=== PATIENT | male | born 1970 | race Two or more races ===

== ENCOUNTER 2017-05-20 17:50 | Inpatient (IN) | payer OTHER ==
[~2017-05-20] VITALS: Ht 167.6 cm; Wt 69.8 kg
[2017-05-20] MEDS ORDERED: ALBUTEROL SULF 2.5 MG/0.5ML(0.5%) NEB SOLN ONE ×2 (18:39→19:57)
[2017-05-20] MEDS ORDERED: methylPREDNISolone SOD SUCC 125 MG/2 ML VL ONE (18:39)
[2017-05-20] MEDS ORDERED: ALBUTEROL SULF 2.5 MG/0.5ML(0.5%) NEB SOLN NEB ONE ×2 (18:40→20:15)
[2017-05-20] MEDS ORDERED: IPRATROPIUM BROM 0.5 MG/2.5ML INH SOL ONE ×2 (18:40→19:57)
[2017-05-20] MEDS ORDERED: IPRATROPIUM BROM 0.5 MG/2.5ML INH SOL NEB ONE ×2 (18:40→20:15)
[2017-05-20 19:09] LABS: Basophils # (auto) 0.1 uL; Basophils % (auto) 0.6 % (0.0-2.0); Eosinophils # (auto) 0.2 uL; Eosinophils % (auto) 1.8 % (0.0-7.0); Hematocrit 36.3 % (41.0-53.0); Hemoglobin 11.9 g/dL (13.5-17.5); Lymphocytes # (auto) 3.2 uL; Lymphocytes % (auto) 25.5 % (10.0-50.0); Mean Corpuscular Hemoglobin 31.7 pg (28.0-32.0); Mean Corpuscular Hgb Conc. 32.9 g/dL (32.0-36.0); Mean Corpuscular Volume 96.3 fL (80.0-100.0); Monocytes # (auto) 1.7 uL; Monocytes % (auto) 13.8 % (0.0-12.0); Neutrophils # (auto) 7.4 uL; Neutrophils % (auto) 58.3 % (37.0-80.0); Nucleated Red Blood Cells % 0.1 %; Platelet Count (auto) 338 10^3/uL (140-450); Red Blood Cells 3.77 10^6/uL (4.5-5.90); Red Cell Distribution Width 14.8 % (11.8-14.3); White Blood Cell 12.6 10^3/uL (4.4-10.8)
[2017-05-20 19:11] LABS: Albumin 2.8 g/dL (3.4-5.0); BUN/Creatinine Ratio 10.3; Bilirubin, Total 0.5 mg/dL (0.2-1.0); Calcium 8.2 mg/dL (8.5-10.1); Potassium 3.9 mmol/L (3.5-5.1); Total Protein 8.3 g/dL (6.4-8.2)
[2017-05-20] MEDS ORDERED: LEVOFLOXACIN 750MG 150 ML IV ONE ×2 (19:29→20:15)
[2017-05-20 19:34] LABS: Urine Bacteria NONE SEEN /hpf (None Seen); Urine Blood Negative /uL (Negative); Urine Hyaline Cast FEW /lpf (0 - 2); Urine Mucus FEW (None Seen); Urine Specific Gravity 1.017 (1.001-1.035); Urine WBC 2 /hpf (0 - 3)
[2017-05-20 20:04] LABS: Alcohol, Urine < 3.0 mg/dL (0-5); Amphetamine Screen, Urine NEGATIVE (NEGATIVE); Barbiturate Scree,Urine NEGATIVE (NEGATIVE); Benzodiazephine Screen, Urine POSITIVE (NEGATIVE); Cannabinoid Screen, Urine NEGATIVE (NEGATIVE); Cocaine Screen, Urine NEGATIVE (NEGATIVE); Opiate Scree,Urine NEGATIVE (NEGATIVE); Phencyclidine Screen, Urine NEGATIVE (NEGATIVE)
[2017-05-20] MEDS ORDERED: SODIUM CHLORIDE 0.9% 1,000 ML IV ONE (20:04)
[2017-05-20 20:51] LABS: INR 1.05 (0.9-1.15); Partial Thromboplastin Time 27.5 sec (22.64-33.71); Prothrombin Time 11.4 sec (9.37-12.3)
[2017-05-20] MEDS ORDERED: IOHEXOL 350 MG/ML 100ML IJ ONE (23:15)
[2017-05-21] MEDS ORDERED: ONDANSETRON HCL 4 MG/2 ML VIAL IV PRN (00:15)
[2017-05-21] MEDS ORDERED: ALBUTEROL SULF 2.5 MG/0.5ML(0.5%) NEB SOLN NEB PRN (00:15)
[2017-05-21] MEDS ORDERED: NITROGLYCERIN 0.4 MG SL TAB SL PRN (00:15)
[2017-05-21] MEDS ORDERED: ACETAMINOPHEN 325 MG TAB PO PRN (00:15)
[2017-05-21] MEDS ORDERED: IPRATROPIUM BROM 0.5 MG/2.5ML INH SOL NEB PRN (00:15)
[2017-05-21] MEDS ORDERED: MORPHINE SULFATE 4 MG/ML SYR/VIAL IV PRN (00:15)
[2017-05-21] MEDS ORDERED: TEMAZEPAM 15 MG CAP PO PRN (00:15)
[2017-05-21 01:09] VITALS: BP 137/87
[2017-05-21] MEDS: FAMOTIDINE 20 MG TAB PO SCH ×2 (09:39→21:46)
[2017-05-21] MEDS: ASPirin 81 mg TAB PO SCH (09:39)
[2017-05-21] MEDS: ENOXAPARIN SOD 40 MG/0.4 ML SYRINGE SC SCH (09:39)
[2017-05-21] MEDS ORDERED: methylPREDNISolone SOD SUCC 125 MG/2 ML VL IV SCH (10:00)
[2017-05-21] MEDS ORDERED: LEVOFLOXACIN 500MG 100 ML IV SCH (10:00)
[2017-05-21 12:06] VITALS: BP 113/75
[2017-05-21] MEDS ORDERED: VANCOMYCIN PER PHARMACY 0 MG IV SCH (19:30)
[2017-05-21] MEDS ORDERED: VANCOMYCIN 1GM/250ML 250 ML IV ONE (21:00)
[2017-05-21 22:00] VITALS: BP 115/72
[2017-05-21] MEDS: CEFEPIME HYDROCHLORIDE 2 GM in D5W 5% 50 ML IV SCH (22:37)
[2017-05-22 05:00] VITALS: BP 119/75
[2017-05-22 07:02] LABS: Basophils # (auto) 0.2 uL; Basophils % (auto) 1.2 % (0.0-2.0); Eosinophils # (auto) 0.1 uL; Eosinophils % (auto) 0.4 % (0.0-7.0); Hematocrit 35.6 % (41.0-53.0); Hemoglobin 11.9 g/dL (13.5-17.5); Lymphocytes # (auto) 4.2 uL; Lymphocytes % (auto) 23.5 % (10.0-50.0); Mean Corpuscular Hemoglobin 31.8 pg (28.0-32.0); Mean Corpuscular Hgb Conc. 33.4 g/dL (32.0-36.0); Mean Corpuscular Volume 95.4 fL (80.0-100.0); Monocytes # (auto) 1.8 uL; Monocytes % (auto) 10.3 % (0.0-12.0); Neutrophils # (auto) 11.6 uL; Neutrophils % (auto) 64.6 % (37.0-80.0); Platelet Count (auto) 350 10^3/uL (140-450); Red Blood Cells 3.74 10^6/uL (4.5-5.90); Red Cell Distribution Width 14.8 % (11.8-14.3); White Blood Cell 17.9 10^3/uL (4.4-10.8)
[2017-05-22] MEDS: HYDROcodone-ACET 5/325MG TAB PO PRN ×2 (07:39→13:50)
[2017-05-22] MEDS: MORPHINE SULFATE 4 MG/ML SYR/VIAL IV PRN ×3 (08:20→15:42)
[2017-05-22] MEDS: VANCOMYCIN 1GM/250ML 250 ML IV SCH ×2 (08:52→20:00)
[2017-05-22 09:00] VITALS: BP 124/87
[2017-05-22 09:19] LABS: Albumin 2.6 g/dL (3.4-5.0); BUN/Creatinine Ratio 24.3; Bilirubin, Total 0.4 mg/dL (0.2-1.0); Calcium 8.4 mg/dL (8.5-10.1); Potassium 3.5 mmol/L (3.5-5.1); Total Protein 7.9 g/dL (6.4-8.2)
[2017-05-22] MEDS: FAMOTIDINE 20 MG TAB PO SCH ×2 (09:27→21:40)
[2017-05-22] MEDS: ENOXAPARIN SOD 40 MG/0.4 ML SYRINGE SC SCH (09:27)
[2017-05-22] MEDS: ASPirin 81 mg TAB PO SCH (09:28)
[2017-05-22] MEDS: predniSONE 20 MG TAB PO SCH (09:30)
[2017-05-22] MEDS: CEFEPIME HYDROCHLORIDE 2 GM in D5W 5% 50 ML IV SCH ×2 (11:33→21:40)
[2017-05-22 13:00] VITALS: BP 133/78
[2017-05-22] MEDS: LEVOFLOXACIN 750MG 150 ML IV SCH (13:53)
[2017-05-22] MEDS: CARISOPRODOL 350 MG TAB PO PRN (16:37)
[2017-05-22 17:00] VITALS: BP 128/88
[2017-05-22 22:00] VITALS: BP 130/86
[2017-05-23 05:00] VITALS: BP 114/85
[2017-05-23 05:56] LABS: Basophils # (auto) 0.2 uL; Basophils % (auto) 1.3 % (0.0-2.0); Eosinophils # (auto) 0.1 uL; Eosinophils % (auto) 0.5 % (0.0-7.0); Hematocrit 37.3 % (41.0-53.0); Hemoglobin 12.2 g/dL (13.5-17.5); Lymphocytes # (auto) 4.1 uL; Lymphocytes % (auto) 33.5 % (10.0-50.0); Mean Corpuscular Hemoglobin 31.4 pg (28.0-32.0); Mean Corpuscular Hgb Conc. 32.8 g/dL (32.0-36.0); Mean Corpuscular Volume 95.7 fL (80.0-100.0); Monocytes % (auto) 16.3 % (0.0-12.0); Neutrophils % (auto) 48.4 % (37.0-80.0); Nucleated Red Blood Cells % 0.1 %; Platelet Count (auto) 397 10^3/uL (140-450); Red Cell Distribution Width 14.8 % (11.8-14.3); White Blood Cell 12.3 10^3/uL (4.4-10.8)
[2017-05-23 06:03] LABS: BUN/Creatinine Ratio 20.3; Calcium 8.8 mg/dL (8.5-10.1); Potassium 4.5 mmol/L (3.5-5.1)
[2017-05-23] MEDS: CARISOPRODOL 350 MG TAB PO PRN ×2 (07:34→15:00)
[2017-05-23 09:00] VITALS: BP 117/82
[2017-05-23] MEDS: MORPHINE SULFATE 4 MG/ML SYR/VIAL IV PRN (09:10)
[2017-05-23] MEDS ORDERED: LEVO750T64 PO (09:31)
[2017-05-23] MEDS ORDERED: DOXY-216 PO (09:35)
[2017-05-23] MEDS ORDERED: ASPirin 81 mg TAB PO SCH (10:00)
[2017-05-23] MEDS: predniSONE 20 MG TAB PO SCH (10:09)
[2017-05-23] MEDS: ENOXAPARIN SOD 40 MG/0.4 ML SYRINGE SC SCH (10:09)
[2017-05-23] MEDS: FAMOTIDINE 20 MG TAB PO SCH (10:09)
[2017-05-23] MEDS: CEFEPIME HYDROCHLORIDE 2 GM in D5W 5% 50 ML IV SCH (10:10)
[2017-05-23] MEDS ORDERED: VANCOMYCIN 1GM/250ML 250 ML IV SCH (12:00)
[2017-05-23] MEDS: HYDROcodone-ACET 5/325MG TAB PO PRN ×2 (12:32→16:45)
[2017-05-23 13:00] VITALS: BP 121/82
[2017-05-23] MEDS: LEVOFLOXACIN 750MG 150 ML IV SCH (15:10)
== END 2017-05-23 17:50 | disposition home or self-care (01) | DRG 133 ==
LOC: ER 17:56 → TELE 17:57 → TELE-CENTR 05-21 12:18 → CENTRAL 05-22 12:48
PROVIDERS: ADMIT Nurse Practitioner; ATTEND Internal Medicine Pulmonary Disease
DX: J96.02 Acute respiratory failure with hypercapnia (principal); J15.6 Pneumonia due to other Gram-negative bacteria; G93.41 Metabolic encephalopathy; I11.0 Hypertensive heart disease with heart failure; E44.0 Moderate protein-calorie malnutrition; I50.82 Biventricular heart failure; K70.30 Alcoholic cirrhosis of liver without ascites; E11.9 Type 2 diabetes mellitus without complications; K72.90 Hepatic failure, unspecified without coma; J44.1 Chronic obstructive pulmonary disease with (acute) exacerbation; Z82.49 Family history of ischemic heart disease and other diseases of the circulatory system; Z87.820 Personal history of traumatic brain injury; Z79.82 Long term (current) use of aspirin; Z68.24 Body mass index [BMI] 24.0-24.9, adult; S06.2X9D Diffuse traumatic brain injury with loss of consciousness of unspecified duration, subsequent encounter
CPT/HCPCS: 36415; 36600; 51702; 71045; 71275; 80048; 80053; 80202; 80307; 81001; 82140; 82805; 83036; 83605; 83735; 83880; 84484; 85025; 85379; 85610; 85730; 87040; 93005; 93306; 94640; 94761; 96361; 96365; 96375; J1956; J7060